=== PATIENT | female | born 1990 | race Caucasian/White ===

== ENCOUNTER 2022-05-26 15:25 | Outpatient (CLI) | payer OTHER, BC, SELFPAY | END 2022-05-26 15:26 | disposition home or self-care (01) | LOC: AMB 06-13 14:38 | PROVIDERS: PCP Physician Assistant; Visit Provider Emergency Medicine | DX: S29.9XXA Unspecified injury of thorax, initial encounter (principal); V49.40XA Driver injured in collision with unspecified motor vehicles in traffic accident, initial encounter; Y92.410 Unspecified street and highway as the place of occurrence of the external cause | CPT/HCPCS: A0998 ==

== ENCOUNTER 2022-05-26 16:14 | Emergency (ER) | payer OTHER, BC, SELFPAY ==
[2022-05-26 16:20] VITALS: BP 137/82; PULSE 89; RESP 16; O2SAT 97
[2022-05-26 16:22] VITALS: BP 123/70; PULSE 89; RESP 16; TEMP 36.9; O2SAT 97
[2022-05-26 16:30] VITALS: BP 123/72; PULSE 95; RESP 16; TEMP 36.9; O2SAT 98
[2022-05-26 16:39] VITALS: BP 137/82; PULSE 91; RESP 16; TEMP 36.9; O2SAT 99
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
[2022-05-26 17:02] LABS: Basophils Absolute Auto 0.03 K/uL (0.00-0.30); Basophils Percent Auto 0.4 % (0.0-3.0); Eosinophils Absolute Auto 0.14 K/uL (0.00-0.50); Eosinophils Percent Auto 1.7 % (0.0-7.0); Hematocrit 39.4 % (33.0-51.0); Hemoglobin* 14.3 gm/dL (12.0-16.0); Immature Granulocytes Abs Auto 0.04 K/uL (0.00-0.30); Lymphocytes Absolute Auto 2.36 K/uL (0.90-2.90); Lymphocytes Percent Auto 28.4 % (20-44); Mean Corpuscular HGB Conc 36 gm/dL (32-36); Mean Corpuscular Hemoglobin 33 pg (26-34); Mean Corpuscular Volume 91 fL (80-100); Monocytes Percent Auto 9.3 % (0.0-11.0); Neutrophils Absolute Auto 4.96 K/uL (1.7-7.0); Neutrophils Percent Auto 59.7 % (42.0-72.0); Platelet Count* 300 K/uL (140-440); RDW Coefficient of Variation % 11.4 % (11.5-15.5); Red Blood Count 4.33 m/uL (4.00-5.20)
[2022-05-26 17:04] LABS: Albumin* 4.5 g/dL (3.3-5.0); Slide Review Reflex No
[2022-05-26 17:05] LABS: Chloride* 105 mmol/L (96-114); Potassium* 3.8 mmol/L (3.6-5.1); Sodium* 138 mmol/L (135-149)
[2022-05-26 17:07] LABS: Aspartate Amino Transferase* 24 U/L (12-35); Bilirubin Direct* 0.1 mg/dL (0.0-0.5); Bilirubin Total* 0.3 mg/dL (0.1-1.5); Blood Urea Nitrogen* 20 mg/dL (5-24); Carbon Dioxide* 26 mmol/L (20-32); Creatinine* 0.6 mg/dL (0.5-1.5); Est. Creatinine Clearance* 114.59; Estimated Glomerular Filt Rate 121 ml/min; Total Protein* 7.8 g/dL (6.0-8.3)
[2022-05-26 17:08] LABS: Alanine Aminotransferase* 14 U/L (4-35); Alkaline Phosphatase* 51 U/L (40-150); Calcium* 9.4 mg/dL (8.4-10.6); Glucose* 122 mg/dL (60-115); Lipase* 54 U/L (23-300)
[2022-05-26] MEDS: KETOROLAC 15 MG/ML inj IVP (17:19)
[2022-05-26] MEDS: 0.9 % SODIUM CHLORIDE 1000 ml 1,000 ML IV (17:19)
[2022-05-26 17:20] LABS: Troponin I* 0.01 ng/mL (0.01-0.04)
[2022-05-26 17:22] LABS: Appearance Urine Clear (Clear); Bilirubin Urine Negative (Negative); Blood Urine Negative (Negative); Color Urine Yellow (Yellow); Glucose Urine Negative (Negative); Ketones Urine Negative (Negative); Leukocyte Esterase Urine Trace (Negative); Nitrite Urine Negative (Negative); Protein Urine Negative (Negative); Specific Gravity Urine 1.025 (1.000-1.030); Urobilinogen Urine 0.2 (0.2-1.0); pH Urine 7.5 (5.0-8.5)
[2022-05-26 17:37] LABS: RBC Urine 0-2 (0-2); WBC Urine 0-2 (0-5)
[2022-05-26 17:38] LABS: Bacteria Urine Few
[2022-05-26 18:00] VITALS: BP 105/66; PULSE 67; RESP 16; TEMP 36.9; O2SAT 99
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
[2022-05-26 19:15] VITALS: BP 115/77; PULSE 67; RESP 16; TEMP 36.9; O2SAT 99
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
== END 2022-05-26 20:00 | disposition home or self-care (01) ==
PROVIDERS: Emergency Provider Emergency Medicine; PCP Physician Assistant
DX: S20.219A Contusion of unspecified front wall of thorax, initial encounter (principal); V43.52XA Car driver injured in collision with other type car in traffic accident, initial encounter
CPT/HCPCS: 36415; 70450; 71045; 71260; 72125; 73610; 80048; 80076; 81001; 83690; 84484; 85025; 87086; 93005; 96374; 99284; 99285; 99291; J1885; J7030; Q9967

== ENCOUNTER 2022-07-05 11:04 | Emergency (ER) | payer BC, SELFPAY ==
[2022-07-05 11:14] VITALS: PULSE 105; RESP 20; TEMP 36.9; O2SAT 97; BMI 23.4
--- NOTE | 2022-07-05 12:12 | ED_ITS ---
HPI - General Adult General Date Seen: 07/05/22 Chief complaint: Anxiety Stated complaint: Anxiety Covid+ 8 days Time Seen by Provider: 07/05/22 12:00 Source: patient History of Present Illness HPI narrative: Patient is a 31-year-old woman has a history of anxiety in the past, she was on sertraline until this summer when she felt like she was doing better so she tapered herself off. Last week, she was diagnosed with COVID. Since then, she has been having significant anxiety and panic. She did see her primary care provider a week ago, and was started on hydroxyzine and restarted her sertraline at 50 mg. She says she is not doing well, she is having panic and feeling very anxious every day. She is sleeping, she is having trouble eating. She says the hydroxyzine is giving her vomiting and diarrhea and she can not take it. It is not helping with anxiety either. She is not able to function well at home, not able to take care of her kids and not able to go to work. She is requesting something else to help with the immediate panic while waiting for the sertraline to start to take effect. She is tearful, but denies significant symptoms of depression or suicidality. In terms of her COVID, she has congestion, cough, fatigue. Is not having other significant symptoms. Related Data Home Medications Medication Instructions Recorded Confirmed sertraline 50 mg tablet mg 05/26/22 06/05/22 Previous Rx's Medication Instructions Recorded hydroxyzine pamoate 50 mg capsule 50 mg PO Q6H PRN anxiety #30 caps 07/03/22 (Vistaril) sertraline 50 mg tablet 50 mg PO QDAY #90 tabs 07/03/22 Allergies Allergy/AdvReac Type Severity Reaction Status Date / Time dog dander Allergy Mild itchy eyes Verified 06/05/22 15:30 Birch tree Allergy Mild itchy eye Uncoded 06/05/22 15:30 Cat hair extract Allergy Mild itchy eyes Uncoded 06/05/22 15:30 Pollen Allergy Mild itchy eye Uncoded 06/05/22 15:30 Molds & Smuts Allergy Unknown itchy eyes Uncoded 06/05/22 15:30 [place] tree Allergy Unknown itchy eye Uncoded 06/05/22 15:30 Review of Systems Status of ROS: Reports: 10 or more systems reviewed and unremarkable except as noted in History and below [facility] Medical History Fracture of phalanx of finger of left hand Gastroenteritis Generalized anxiety disorder Social History Narrative: , 2 kids, non-smoker, no EtOH Works as a educational/development assistant at [email or web address], exercises 4 to 5 times a week by doing cardio and strength Smoking Status: Never smoker Do you use any of these nicotine containing products: None How often do you have a drink containing alcohol: monthly or less AUDIT-C Alcohol total score: 1 Non-prescribed substance use: denies use Little interest or pleasure in doing things: not at all Feeling down, depressed, or hopeless: not at all service: No Exam Narrative: Exam Narrative: Vital signs as noted above. In general, an alert, well-appearing patient. Head: Normocephalic, atraumatic. Eyes: Pupils are equal reactive. Extraocular movements are full. Conjunctivae are normal. ENT: Mucous membranes are moist. Throat is normal. Neck: Supple without lymphadenopathy. Heart: Regular rate and rhythm. No murmur or rub. Lungs: Clear bilaterally. No increased work of breathing, crackles or wheezes. Abdomen: Soft and nontender. No organomegaly. Extremities: Well perfused. No edema. No calf tenderness. Pulses intact. Neurologic: Patient is alert and oriented to person and place. Speech is fluent. Face is symmetric. Moves all extremities equally. Affect: Tearful, anxious. Skin: Warm and dry. Well perfused. Const: Vital Signs, click to edit/add: Vital Signs - 24 hr 07/05/22 11:14 Temperature 98.5 F Pulse Rate [Pulse Oximeter] 105 H Respiratory Rate 20 Pulse Oximetry 97 Oxygen Delivery Me thod Room Air Course Course Hospital Course: In talking with her, she is clearly having difficulty with anxiety and panic. She is on appropriate medication for long-term management of that has not had enough time to fully take effect. I think using a benzodiazepine short term is appropriate in her case. She understands that this is not a long-term solution. Discussed that if the 50 mg dose of sertraline is not helpful for her over the next several weeks to months, she can talk to her primary doctor about increasing the dose to 100 mg. Certainly if she has worsening anxiety or develops symptoms of suicidality she should return. In terms of her COVID, she seems to be well, but if she has acute worsening shortness of breath etcetera return for re-evaluation. Otherwise, symptomatic care. Vital Signs Vital signs: Initial Vital Signs Temperature 98.5 F 07/05/22 11:14 Temperature Source Temporal Artery Scan 07/05/22 11:14 Pulse Rate 105 H 07/05/22 11:14 Pulse Rhythm 07/05/22 11:14 Respiratory Rate 20 07/05/22 11:14 Pulse Oximetry 97 07/05/22 11:14 Oxygen Delivery Method 07/05/22 11:14 Vital Signs Temperature 98.5 F 07/05/22 11:14 Pulse Rate 105 H 07/05/22 11:14 Respiratory Rate 20 07/05/22 11:14 Pulse Oximetry 97 07/05/22 11:14 Oxygen Delivery Method 07/05/22 11:14 Temperature 98.5 F 07/05/22 11:14 Pulse Rate 105 H 07/05/22 11:14 Respiratory Rate 20 07/05/22 11:14 Pulse Oximetry 97 07/05/22 11:14 Oxygen Delivery Method 07/05/22 11:14 Discharge Plan Discharge Clinical Impression: COVID-19, Acute anxiety Patient Disposition: Home, Self-Care Condition: Stable Instructions: Anxiety (ED) Additional Instructions: Continue your sertraline as prescribed. Can titrate up if needed if not improving over the next 3-4 weeks. Discuss with your primary care provider. Ativan as prescribed for more immediate panic and anxiety. COVID symptoms will likely improve over the next several days to week. Return for worsening shortness of breath or other significant symptoms. Prescriptions: No Action sertraline 50 mg tablet 50 mg PO QDAY Qty: 90 0RF Rx Instructions: 1/2 tab daily x 3 days, then 50mg daily hydroxyzine pamoate [Vistaril] 50 mg capsule 50 mg PO Q6H PRN (Reason: anxiety) Qty: 30 0RF sertraline 50 mg tablet Label Comments: TAKE 1 TABLET BY MOUTH DAILY Follow Up/Referrals: Nathalie Wu PA-C [Primary Care Provider] - Stand Alone Forms: [employer] Info Instructions
[2022-07-05 12:36] VITALS: BP 114/77; PULSE 79; RESP 16; TEMP 36.8; O2SAT 97
== END 2022-07-05 12:35 | disposition home or self-care (01) ==
LOC: ED 12:15
PROVIDERS: Emergency Provider Emergency Medicine; PCP Physician Assistant
DX: F41.9 Anxiety disorder, unspecified (principal); U07.1 COVID-19
CPT/HCPCS: 99283; 99284

== ENCOUNTER 2023-01-09 09:40 | Outpatient (CLI) | payer BC, SELFPAY | END 2023-01-09 09:41 | disposition home or self-care (01) | PROVIDERS: PCP Internal Medicine; Visit Provider Internal Medicine | DX: Z01.818 Encounter for other preprocedural examination (principal) | CPT/HCPCS: 80048; 84702; 85610; 85730 ==